=== PATIENT | female | born 1985 | race Hispanic/Latino ===

== ENCOUNTER 2024-01-20 14:50 | Emergency (ER) | payer SELFPAY ==
[2024-01-20] MEDS ORDERED: Morphine 2 MG/ML VIAL ONE ×2 (15:59→20:53)
[2024-01-20] MEDS ORDERED: fentaNYL 50 mcg/mL 1 mL Vial ONE (19:12)
[2024-01-20] MEDS ORDERED: Midazolam HCl 5 mg/ml Vial ONE (19:12)
== END 2024-01-20 21:04 | disposition home or self-care (01) ==
LOC: ERS 14:50
DX: S52.571A Other intraarticular fracture of lower end of right radius, initial encounter for closed fracture (principal); S52.601A Unspecified fracture of lower end of right ulna, initial encounter for closed fracture; W23.0XXA Caught, crushed, jammed, or pinched between moving objects, initial encounter; Y99.0 Civilian activity done for income or pay
CPT/HCPCS: 25565; 71046; 72072; 96374; 96375; 96376; 99152; J2250; J2272; J3010

== ENCOUNTER 2024-01-27 10:39 | Day surgery (SDC) | payer SELFPAY ==
[2024-01-26 14:30] VITALS: BMI 27.3
[2024-01-27] MEDS ORDERED: Midazolam HCl 2 mg/2 ml Vial ONE ×2 (12:47→13:07)
[2024-01-27] MEDS ORDERED: Bupivacaine PF 0.5% 30 ML VIAL ONE (12:47)
[2024-01-27] MEDS ORDERED: fentaNYL 50 mcg/mL 1 mL Vial ONE ×2 (12:47→15:42)
[2024-01-27 13:03] LABS: #Basophils 0.06 10x3/uL (0.0-0.2); %Basophils 0.9 % (0.0-1.0); %Eosinophils 3.9 % (0.0-10.0); %Lymphocytes 34.4 % (21.0-51.0); %Monocytes 10.3 % (0.0-10.0); %Neutrophils 50.3 % (42.0-75.0); Hematocrit 43.9 % (36.0-47.0); Hemoglobin 13.6 g/dL (12.0-16.0); Mean Corpuscular Hemoglobin 27.9 pg (27.0-31.0); Mean Corpuscular Volume 90.1 fL (78.0-98.0); Mean Platelet Volume 9.2 fL (7.4-10.4); Platelet Count 420 10x3/uL (130-400); RBC Distribution Width 13.4 % (11.5-14.5); Red Blood Cell (RBC) Count 4.87 mill/uL (4.20-5.40)
[2024-01-27] MEDS ORDERED: PHENYLEPHRINE-NS 100 MCG/ML 10 ML SYRINGE ONE (13:05)
[2024-01-27] MEDS ORDERED: Bupivacaine HCl 0.5%/Epinephrine 1:200,000/PF 30 ml Vial ONE (13:05)
[2024-01-27] MEDS ORDERED: Lidocaine 1% PF 5 ML VIAL ONE (13:07)
[2024-01-27] MEDS ORDERED: Ondansetron PF 4 MG/2 ML Vial ONE ×2 (13:07→16:52)
[2024-01-27] MEDS ORDERED: Dexamethasone 4 mg/ml Vial ONE (13:07)
[2024-01-27] MEDS ORDERED: fentaNYL PF 100 MCG/2 ML SYRINGE ONE (13:07)
[2024-01-27] MEDS ORDERED: PROPOFOL 20 ML ONE (13:07)
[2024-01-27] MEDS ORDERED: CEFAZOLIN 2 GM VIAL ONE (13:11)
[2024-01-27] MEDS ORDERED: ePHEDrine Sulfate 50 MG/10 ML VIAL ONE (14:06)
[2024-01-27] MEDS ORDERED: Ketorolac Tromethamine 30 MG (1 mL) VIAL ONE (15:42)
== END 2024-01-27 18:20 | disposition home or self-care (01) ==
LOC: SDC 10:39
PROVIDERS: ATTEND Orthopaedic Surgery Hand Surgery
PROC: 0PSK04Z Reposition Right Ulna with Internal Fixation Device, Open Approach (ICD-10-PCS; principal; 2024-01-27)
PROC: 3E0T3BZ Introduction of Anesthetic Agent into Peripheral Nerves and Plexi, Percutaneous Approach (ICD-10-PCS; principal; 2024-01-27)
PROC: 0PSH04Z Reposition Right Radius with Internal Fixation Device, Open Approach (ICD-10-PCS; principal; 2024-01-27)
DX: S52.591A Other fractures of lower end of right radius, initial encounter for closed fracture (principal); S52.614A Nondisplaced fracture of right ulna styloid process, initial encounter for closed fracture; Z79.899 Other long term (current) drug therapy; W10.9XXA Fall (on) (from) unspecified stairs and steps, initial encounter
CPT/HCPCS: 85025; C1713; J0665; J1100; J1885; J2250; J2405; J2704; J3010

== ENCOUNTER 2024-01-30 16:03 | Emergency (ER) | payer SELFPAY ==
[2024-01-30 17:10] LABS: #Basophils 0.04 10x3/uL (0.0-0.2); %Basophils 0.5 % (0.0-1.0); %Eosinophils 6.4 % (0.0-10.0); %Lymphocytes 43.1 % (21.0-51.0); %Monocytes 10.6 % (0.0-10.0); %Neutrophils 39.1 % (42.0-75.0); Hematocrit 34.3 % (36.0-47.0); Hemoglobin 11.3 g/dL (12.0-16.0); Mean Corpuscular HGB CONC 32.9 g/dL (32.0-36.0); Mean Corpuscular Hemoglobin 27.2 pg (27.0-31.0); Mean Corpuscular Volume 82.7 fL (78.0-98.0); Mean Platelet Volume 8.7 fL (7.4-10.4); Platelet Count 448 10x3/uL (130-400); RBC Distribution Width 13.2 % (11.5-14.5); Red Blood Cell (RBC) Count 4.15 mill/uL (4.20-5.40)
[2024-01-30 17:26] LABS: ALT (SGPT) 19 U/L (8-55); AST (SGOT) 28 U/L (5-34); Albumin 3.6 g/dL (3.5-5.0); Alkaline Phosphatase 75 U/L (40-110); Anion Gap 14 mmol/L (10-20); BUN (Urea Nitrogen) 15 mg/dL (7.0-18.7); Bilirubin, Total 0.2 mg/dL (0.2-1.2); Calc. Creatinine Clearance 0 mL/min (70-130); Calcium 8.9 mg/dL (7.8-10.44); Carbon Dioxide 25 mmol/L (22-29); Chloride 101 mmol/L (98-107); Estimated GFR 79; Globulin 3.5 g/dL (2.4-3.5); Glucose 99 mg/dL (70-105); Potassium 4.9 mmol/L (3.5-5.1); Protein, Total 7.1 g/dL (6.0-8.3); Sodium 135 mmol/L (136-145)
== END 2024-01-30 18:30 | disposition home or self-care (01) ==
LOC: ERS 16:03
DX: G89.18 Other acute postprocedural pain (principal); M79.601 Pain in right arm
CPT/HCPCS: 71045; 80053; 83605; 85025